=== PATIENT | female | born 1980 | race Caucasian/White ===

== ENCOUNTER 2021-12-06 13:33 | Emergency (ER) | payer OTHER, SELFPAY ==
[2021-12-06 13:41] VITALS: BP 126/74; PULSE 80; RESP 16; TEMP 36.8; O2SAT 98
--- NOTE | 2021-12-06 13:45 | ED.SKABFB ---
HPI - Skin/Abscess/Foreign Bdy General Chief complaint: Skin/Abscess/Foreign Body Stated complaint: Skin Sore Time Seen by Provider: 12/06/21 13:36 Source: patient and RN notes reviewed History of Present Illness HPI narrative: Patient is a 41-year-old female presents the urgent care with complaints of a sore on the left pinky finger. Patient states that she noticed it 3 days ago and she has been poking, prodding and squeezing on the area. Patient has done warm soaks, ibuprofen and Neosporin. States that it started out as a small pimple. Denies of any fevers. No other acute complaints. No acute distress noted. Patient read the plan of care. Some parts of this dictation were generated by voice recognition software and may contain typographical and/or grammatical inaccuracies. Related Data Allergies Allergy/AdvReac Type Severity Reaction Status Date / Time No Known Allergies Allergy Verified 12/06/21 13:46 Review of Systems Review of Systems: CONSTITUTIONAL: Denies fever, chills, or sweats. EYES: Denies visual changes, redness, or discharge. ENT: Denies rhinorrhea, congestion, sore throat, or otalgia. CARDIOVASCULAR: Denies chest pain, palpitations, or edema. RESPIRATORY: Denies cough or dyspnea. GASTROINTESTINAL: Denies abdominal pain, nausea, vomiting, or diarrhea. GENITOURINARY: Denies dysuria or hematuria. SKIN: Reports of a swollen painful bump on the left pinky finger MUSCULOSKELETAL: Denies back pain, joint pain, or myalgia. NEUROLOGIC: Denies headache, numbness, or weakness. All other systems reviewed are negative, except as documented in HPI. PMFSH Comments At the time of my signature, I reviewed and agree with the nursing past medical, surgical, social, and family history. There is no relevant family history pertinent to the patient complaint. Exam Narrative: GENERAL: This is a well-nourished, well-developed patient, in no apparent distress. HEAD: normocephalic, atraumatic. EYES: PERRL. Sclera clear/white. Vision is grossly intact. EARS: External ears normal NOSE: External nose normal with no obvious nasal discharge, nares without redness, no rhinorrhea. THROAT: Mucous membranes moist NECK: Neck supple CARDIOVASCULAR: Regular rate and rhythm without murmurs, gallops, or rubs. RESPIRATORY: Clear to auscultation. Breath sounds equal bilaterally. No wheezes, rales, or rhonchi. SKIN: 1 cm circular erythemic abscess to the dorsal aspect of the left pinky finger to the PIP with a raised white fluid-filled center NEURO: awake, alert, and oriented to person, place and time. There were no obvious focal neurologic abnormalities. EXTREMITIES: No clubbing, cyanosis, or edema. Course Course Level of Care: Express Care Visit Vital Signs Vital signs: Vital Signs Temperature 98.2 F 12/06/21 13:41 Pulse Rate 80 12/06/21 13:41 Respiratory Rate 16 12/06/21 13:41 Blood Pressure 126/74 12/06/21 13:41 Pulse Oximetry 98 12/06/21 13:41 Temperature 98.2 F 12/06/21 13:41 Pulse Rate 80 12/06/21 13:41 Respiratory Rate 16 12/06/21 13:41 Blood Pressure 126/74 12/06/21 13:41 Pulse Oximetry 98 12/06/21 13:41 Reviewed MDM - Skin/Abscess/Foreign Bdy MDM Narrative Medical decision making narrative: Advised patient complete the oral antibiotic regimen as prescribed. Be sure to eat and drink with medication. Use the prescription cream to the affected area as directed. Continue warm plain Dial soap/water soaks. Keep it covered if at risk of being soiled. Otherwise, keep the wound open to air for better healing process. Do not try to poke or drain the area. If you develop any increase in symptoms associated with redness or streaking from the wound?go to the emergency room or follow-up for further evaluation. Follow-up with your PCP within 2 to 5 days or for worsening symptoms or failure to improve. Patient refused I&D drainage. Differential Diagnosis Differential diagnosis: Likely abscess of skin
== END 2021-12-06 14:05 | disposition home or self-care (01) ==
PROVIDERS: Emergency Provider Nurse Practitioner Family; PCP Internal Medicine
DX: L02.512 Cutaneous abscess of left hand (principal)
CPT/HCPCS: 99213; G0463